=== PATIENT | female | born 1930 | race Caucasian/White ===

== ENCOUNTER 2017-12-11 11:41 | Day surgery (SDC) | payer OTHER, MEDICARE ==
[2017-12-10 11:59] VITALS: BMI 23.6
[2017-12-11] MEDS ORDERED: LIDOCAINE HCL 1%, 10 MG/ML (20ML VIAL) ONE (12:46)
[2017-12-11] MEDS ORDERED: BUPIVACAINE HCL/PF 2.5 MG/ML - 30 ML VIAL IJ ONE (12:46)
[2017-12-11] MEDS ORDERED: LIDOCAINE 1%/EPI 1:100000 (20 ML MULTI DOSE VIAL) ONE (12:46)
[2017-12-11] MEDS ORDERED: BUPIVACAINE HCL/PF 0.5% (5MG/ML) 10 ML VIAL ONE (12:46)
[2017-12-11] MEDS ORDERED: MIDAZOLAM HCL 2 MG/2 ML SINGLE DOSE VIAL ONE (12:49)
[2017-12-11] MEDS ORDERED: PROPOFOL 20 ML ONE ×2 (13:22)
[2017-12-11] MEDS ORDERED: SUCCINYLCHOLINE CHLORIDE 200 MG/10 ML VIAL ONE (13:22)
[2017-12-11] MEDS ORDERED: ceFAZolin SODIUM 1 GM VIAL ONE (13:32)
[2017-12-11] MEDS ORDERED: DEXAMETHASONE SOD PHOSPHATE 4 MG/1 ML VIAL ONE (13:34)
[2017-12-11] MEDS ORDERED: ONDANSETRON 4 MG/2 ML VIAL ONE (13:34)
[2017-12-11] MEDS ORDERED: POVIDONE-IODINE 5% OPHTHALMIC PREP 30 ML SOLUTION ONE (13:35)
[2017-12-11] MEDS ORDERED: ePHEDrine SULFATE 50 MG/1 ML AMPULE ONE (13:49)
[2017-12-11] MEDS ORDERED: BSS (NA/CA/MG/K) BALANCED SALT SOLUTION OPHTH SOLN 15 ML BOTTLE ONE (13:50)
[2017-12-11] MEDS ORDERED: LIDOCAINE 1%/EPI 1:100000 (50 ML MULTI DOSE VIAL) INF ONE ×2 (14:03)
[2017-12-11] MEDS ORDERED: DESFLURANE GAS 240 ML BOTTLE IH ONE (14:13)
[2017-12-11] MEDS ORDERED: NEO/POLYMYX B SULF/DEXAMETH OPHTHALMIC 5ML BOTTLE ONE (15:43)
[2017-12-11] MEDS ORDERED: NEO/POLYMYX B SULF/DEXAMETH OPHTHALMIC OINTMENT 3.5 GM ONE (15:45)
[2017-12-11] MEDS ORDERED: NITROGLYCERIN 2% OINTMENT - 1GM PACKET TD ONE ×2 (15:46→15:59)
[2017-12-11] MEDS ORDERED: NEO/POLYMYX B SULF/DEXAMETH OPHTHALMIC OINTMENT 3.5 GM TP ONE (15:59)
[2017-12-11] MEDS ORDERED: NEO/POLYMYX B SULF/DEXAMETH OPHTHALMIC 5ML BOTTLE OD ONE (15:59)
[2017-12-11] MEDS ORDERED: PROMETHAZINE HCL 25 MG/1 ML VIAL IVPUSH PRN (16:06)
[2017-12-11] MEDS ORDERED: ONDANSETRON 4 MG/2 ML VIAL IVPUSH PRN (16:06)
[2017-12-11] MEDS ORDERED: oxyCODONE HCL 5 MG TABLET PO PRN ×4 (16:06→16:32)
[2017-12-11] MEDS ORDERED: LACTATED RINGERS SOLUTION 1,000 ML IV SCH ×2 (16:15→16:45)
[2017-12-11] MEDS ORDERED: ONDANSETRON 4 MG/2 ML VIAL IVPB PRN (16:32)
--- NOTE | 2017-12-11 16:39 | OP ---
Operative Note - Note: Operative Date: 12/11/17 Pre-Operative Diagnosis: right lower and upper eyelid defect Operation: right upper to lower tarsoconjunctival flap, right lateral canthoplasty, right eyelid reconstruction by Tenzel flap, scalp flap reconstruction of donor site, tarsorrhaphy suture Post-Operative Diagnosis: Same as Pre-op Surgeon: Scout Smallwood Anesthesia: General, Local Operative Report Dictated: Yes
[2017-12-11 18:33] VITALS: TEMP 97.7
[2017-12-11 19:18] VITALS: BP 130/70; PULSE 89
--- NOTE | 2017-12-12 09:21 | OP ---
DATE OF OPERATION: 12/11/2017 PROCEDURE: Right lower eyelid reconstruction with the following methods: 1. Right [id number]-[id number] tarsoconjunctival flap for conjunctivae and support of the right lower eyelid. 2. Right lower eyelid lateral canthoplasty, reconstruction of lateral canthal attachment. 3. Tenzel cheek advancement flap reconstruction of right lower eyelid. 4. Temporal scalp flap reconstruction of donor site of Tenzel flap. 5. Lateral tarsorrhaphy Baca suture temporary closure of right eyelid. 6. Excision and debris of existing wound in preparation for flap closure. ATTENDING SURGEON: Scout Smallwood MD LENS ASSISTANT: None. ANESTHESIA: General endotracheal anesthesia with a total of 5 mL of 1% lidocaine with 1:100,000 epinephrine injected off the field preoperatively and an additional 15 mL of 1% lidocaine with 1:100,000 epinephrine injected during the operation as the procedure progressed. DESCRIPTION OF PROCEDURE: The patient was seen in the holding area. She is counseled on all risks, benefits, and alternatives of the procedure, which she understands. She is prepped and draped. She is marked. She is brought to the operating room. Sequential compression stockings were applied. CHI hose were applied. She was given a gram of Ancef preoperatively. She was then prepped and draped in the standard sterile fashion. A time-out was called. The procedure, site, side are verified. The wound is debrided by curetting of the entire base and excision of the edges of the wound. It is determined that the lateral 1/3 of the lower lid tarsal plate is absent, and there is no competency of the lower eyelid. To reconstruct this, a decision was made to use a reconstruction of tarsus and conjunctivae from the upper eyelid. This is harvested from the lateral border of the upper eyelid. The lid is everted. Then 5 mm of tarsal plate are left along the upper eyelid margin. The superior 4 mm of tarsus are marked, and the tarsal plate and its underlying conjunctivae are then dissected from the Guerrero's muscle leaving all Guerrero's muscle in place. Maintaining the conjunctival portion toward the globe, the flap is mobilized to the lower eyelid basing it on the reflection of conjunctivae at the lateral commissure of the eyelid. Taking care to have no suture elements on the internal surface of the reconstruction, the reconstructed tarsal plate from the flap is secured to the lateral free margin of the tarsal plate on the lower eyelid with 2 separate 6-0 Prolene sutures. The knots are within the tissues away from the globe. The lateral extent of the tarsal plate on the flap is then used as a sling and pexied to the internal aspect of the lateral orbital rim at the mid pupillary level. This is performed with a 4-0 Prolene suture creating a lateral canthoplasty. The residual upper eyelid defect is repaired to the free edge of the flap at the lateral commissure, thus, entirely reconstructing the lateral canthus. The remainder of the tarsoconjunctival flap is then inset to the surrounding residual conjunctival defect of the lower eyelid without tension using 5-0 plain gut suture. At this point, good lower eyelid support is achieved, and the plan for anterior lamellar reconstruction is performed using a lateral cheek Tenzel-style rotation flap. This is then incised and elevated in a subcutaneous plane. It is back cut along the preauricular skin and rotated into the defect without tension. An inferior medial dogear on the cheek is excised and closed in the orientation of the nasolabial fold. The inset is performed with a series of interrupted 6-0 Prolene sutures. The superolateral defect on the scalpel preauricularly is then unable to be closed primarily, and a secondary scalp flap back cut into the hair bearing temporal scalp is performed and rotated into this secondary defect. It is secured with a series of interrupted 4-0 Prolene suture. The donor site from the scalp flap was able to be closed primarily with a series of interrupted skin camelia. Because the patient had some preoperative chemosis from the open wound, the decision was made to protect the globe with a temporary tarsorrhaphy suture using a 6-0 nylon suture from the residual upper tarsal plate to the lower eyelid [place] tarsal plate. Dexamethasone ointment is applied intraocularly. Tissues are viable. Preemptive nitroglycerin paste is appreciated to the distal inset portion of the Tenzel cheek flap. The patient was dressed, otherwise, with bacitracin, Xeroform, and Hypafix tape. Was awoken from anesthesia having tolerated procedure well and transferred to recovery without complication. Stephane [id number]
== END 2017-12-11 19:18 | disposition home or self-care (01) ==
LOC: FASU 11:41
PROVIDERS: ATTEND Plastic Surgery
PROC: 08UQX7Z Supplement Right Lower Eyelid with Autologous Tissue Substitute, External Approach (ICD-10-PCS; 2017-12-11)
PROC: 08SP0ZZ Reposition Left Upper Eyelid, Open Approach (ICD-10-PCS; 2017-12-11)
PROC: 08QQXZZ Repair Right Lower Eyelid, External Approach (ICD-10-PCS; 2017-12-11)
PROC: 08QNXZZ Repair Right Upper Eyelid, External Approach (ICD-10-PCS; 2017-12-11)
PROC: 0HX1XZZ Transfer Face Skin, External Approach (ICD-10-PCS; principal; 2017-12-11 13:48)
DX: C44.112 Basal cell carcinoma of skin of right eyelid, including canthus (principal)
CPT/HCPCS: 94760